=== PATIENT | female | born 1970 | race Caucasian/White ===

== ENCOUNTER → 2016-08-08 | Outpatient (CLI) | payer BC, OTHER ==
[~2016-08-08] MED LIST: AMOX500C3 PO
[2016-08-08 16:36] LABS: ALT/SGPT 16 U/L (12-78); AST/SGOT 12 U/L (15-37)
== END | disposition home or self-care (01) ==
LOC: C.LABBFT 12:55
PROVIDERS: ATTEND Nurse Practitioner
DX: B35.1 Tinea unguium (principal)

== ENCOUNTER → 2017-12-21 | Outpatient (CLI) | payer BC, OTHER ==
--- NOTE | 2017-12-21 11:49 | DIAGNOSTIC IMAGING REPORT ---
PELVIC COMPLETE NON OB HISTORY: 47 years-old Female N92.0 [id number] acute menorrhagia COMPARISON: Pelvic ultrasound 11/13/2017 TECHNIQUE: Multiple real-time significant images of the deep pelvic structures were obtained transabdominally and transvaginally assessing grayscale appearance and color flow FINDINGS: TRANSABDOMINAL: Anteflexed uterus measures 10.6 x 5.2 cm. The endometrium measures 8 mm in thickness. TRANSVAGINAL: Anteflexed uterus measures 9.7 x 5.0 x 6.7 cm. Endometrium appears homogeneous, 9 mm. No myometrial mass lesions identified small nabothian cysts of the cervix. Left ovary measures 2.7 x 1.5 x 2.6 cm and is unremarkable with arterial inflow documented. No left adnexal mass lesions. The right ovary measures 1.7 x 1.1 x 1.2 cm and is partially obscured by bowel gas. Arterial inflow to the right ovary is noted. No right adnexal mass lesions. IMPRESSION: 1. Unremarkable sonographic appearance of the uterus and endometrium. (Normal endometrial thickness may measure up to 1.6 cm in the secretory phase of a premenopausal patient). 2. Unremarkable sonographic appearance of the ovaries without evidence of torsion or mass. 3. Nabothian cysts of the cervix. The above report was generated using voice recognition software. It may contain grammatical, syntax or spelling errors. Electronically signed by: Leoncio Sarmiento M.D. 12/21/2017 11:48 AM Dictated Date/Time: 12/21/2017 11:43 AM
== END | disposition home or self-care (01) ==
LOC: C.ULTR 10:27
PROVIDERS: ATTEND Physician Assistant Medical
DX: N92.0 Excessive and frequent menstruation with regular cycle (principal); N88.8 Other specified noninflammatory disorders of cervix uteri

== ENCOUNTER → 2017-12-29 | Outpatient (CLI) | payer BC, OTHER ==
--- NOTE | 2017-12-29 15:21 | MAMMOGRAPHY REPORT ---
BILATERAL DIGITAL SCREENING MAMMOGRAM TOMOSYNTHESIS WITH CAD: 12/29/2017 CLINICAL HISTORY: Routine screening. Patient has no complaints. TECHNIQUE: The study was acquired using full field digital technology and interpreted from soft copy. Breast tomosynthesis in addition to standard 2D mammography was performed. Current study was also ev aluated with a Computer Aided Detection (CAD) system. COMPARISON: Comparison is made to exams dated: 02/09/2015 mammogram, 12/30/2013 mammogram, 12/29/2012 ma mmogram, 10/06/2011 mammogram, 10/14/2010 aspiration, and 10/01/2010 mammogram - [facility] ter. BREAST COMPOSITION: The tissue of both breasts is heterogeneously dense, which may obscure small mass es. FINDINGS: There are multiple bilateral circumscribed low-density subcentimeter masses scattered in th e breasts, which is a typically benign mammographic pattern. No suspicious spiculated or irregular ma ss, architectural distortion, asymmetry or cluster of microcalcifications is seen. IMPRESSION: ACR BI-RADS CATEGORY 2: BENIGN There is no mammographic evidence of malignancy. A 1 year screening mammogram is recommended.( [id number]) The patient will receive written notification of the results. Some breast cancers are not detected with mammography. A negative mammographic report should not melisa y biopsy if a clinically suggestive mass is present. Macrina Varner M.D. ay/:12/29/2017 14:43:50 [employer] Operator: Nettie Vargas RT(R)(M), [facility] letter sent: Normal 1/2 BI-RADS Code: ACR BI-RADS Category 2: Benign
== END | disposition home or self-care (01) ==
LOC: C.MAMM 13:30
PROVIDERS: ATTEND Internal Medicine
DX: Z12.31 Encounter for screening mammogram for malignant neoplasm of breast (principal)